=== PATIENT | female | born 1990 | race Caucasian/White ===

== ENCOUNTER → 2018-02-12 | Outpatient (CLI) | payer OTHER ==
[~2018-02-12] MED LIST: AMOX250 PO; CODACE30 PO; HYDR1TAB94 PO; MUPIROCIN15 GM TOP; Naprosyn500 MG PO; Silvadene20 GM TOP
[2018-02-12 15:03] LABS: BASOPHILS ABSOLUTE AUTO 0.06 K/mm3 (0.00-0.23); BASOPHILS PERCENT AUTO 1 % (0-2); EOSINOPHILS ABSOLUTE AUTO 0.05 K/mm3 (0.00-0.68); EOSINOPHILS PERCENT AUTO 1 % (0-6); Hematocrit 39.5 % (33.0-51.0); Hemoglobin 13.3 g/dL (11.5-16.0); IMMATURE GRAN ABSOLUTE AUTO 0.01 K/mm3 (0.00-0.10); IMMATURE GRAN PERCENT AUTO 0 % (0-1); LYMPHOCYTES ABSOLUTE AUTO 2.39 K/mm3 (0.84-5.20); LYMPHOCYTES PERCENT AUTO 33 % (21-46); MONOCYTES ABSOLUTE AUTO 0.47 K/mm3 (0.16-1.47); MONOCYTES PERCENT AUTO 7 % (4-13); Mean Corpuscular HGB 30.2 pg (26.0-34.0); Mean Corpuscular HGB Conc 33.7 g/dL (31.5-36.5); Mean Corpuscular Volume 90 fL (80-100); Mean Platelet Volume 9.7 fL (9.1-12.4); NEUTROPHILS ABSOLUTE AUTO 4.18 K/mm3 (1.96-9.15); NEUTROPHILS PERCENT AUTO 58 % (41-73); Platelet Count 296 K/mm3 (150-400); RDW Coefficient Variation 13.3 % (11.7-14.2); RDW Standard Deviation 44.2 fL (35.1-46.3); Red Blood Cell Count 4.41 M/mm3 (3.80-5.20); White Blood Cell Count 7.16 K/mm3 (4.00-11.30)
== END | disposition home or self-care (01) ==
LOC: LAB SHORT 15:00 → LAB EV 15:00
PROVIDERS: Physician Assistant
DX: R07.89 Other chest pain (principal)
CPT/HCPCS: 85025

== ENCOUNTER → 2021-09-09 | Outpatient (CLI) | payer OTHER | END | disposition home or self-care (01) | LOC: LAB 16:51 → LAB SHORT 16:51 | DX: N32.81 Overactive bladder (principal) | CPT/HCPCS: 87109 ==

== ENCOUNTER 2024-08-22 19:12 | Inpatient (IN) | payer OTHER ==
[~2024-08-22] VITALS: Ht 162.6 cm; Wt 97.3 kg
[2024-08-22] MEDS ORDERED: Methylergonovine Maleate 0.2MG / ML 1ML Amp IM PRN (19:25)
[2024-08-22] MEDS ORDERED: Tranexamic Acid 100 ML IV SCH (19:25)
[2024-08-22] MEDS ORDERED: ePHEDrine Sulfate 50 MG/ML 1ML Injection XX PRN (19:25)
[2024-08-22] MEDS ORDERED: OXYTOCIN/RINGER'S LACTATE 500 ML IV PRN (19:25)
[2024-08-22] MEDS ORDERED: Ondansetron HCl 2 MG / ML 2ML Vial IV PRN (19:25)
[2024-08-22] MEDS ORDERED: Carboprost Tromethamine 250 MCG/ML 1ML Amp IM PRN (19:25)
[2024-08-22] MEDS ORDERED: FentaNYL 2mcg/ml-Bup 0.1% Epd 250 ML EPI PRN (19:25)
[2024-08-22] MEDS ORDERED: Oxytocin 10 Unit / ML Vial IM PRN (19:25)
[2024-08-22] MEDS ORDERED: FentaNYL Citrate 50 MCG/ML 2 ML Injection IV PRN (19:30)
[2024-08-22 20:04] LABS: BASOPHILS ABSOLUTE AUTO 0.06 K/mm3 (0.00-0.23); BASOPHILS PERCENT AUTO 1 % (0-2); EOSINOPHILS ABSOLUTE AUTO 0.18 K/mm3 (0.00-0.68); EOSINOPHILS PERCENT AUTO 2 % (0-6); Hematocrit 36.3 % (33.0-51.0); Hemoglobin 12.0 g/dL (11.5-16.0); IMMATURE GRAN ABSOLUTE AUTO 0.06 K/mm3 (0.00-0.10); IMMATURE GRAN PERCENT AUTO 1 % (0-1); LYMPHOCYTES ABSOLUTE AUTO 2.42 K/mm3 (0.84-5.20); LYMPHOCYTES PERCENT AUTO 23 % (21-46); MONOCYTES ABSOLUTE AUTO 0.83 K/mm3 (0.16-1.47); MONOCYTES PERCENT AUTO 8 % (4-13); Mean Corpuscular HGB Conc 33.1 g/dL (31.5-36.5); Mean Corpuscular Volume 87 fL (80-100); NEUTROPHILS ABSOLUTE AUTO 7.20 K/mm3 (1.96-9.15); NEUTROPHILS PERCENT AUTO 67 % (41-73); NRBC ABSOLUTE 0.00 K/mm3 (0.00-0.02); NRBC Auto 0.0 /100 WBC (0.0-0.2); Platelet Count 180 K/mm3 (150-400); RDW Coefficient Variation 15.1 % (11.7-14.2); RDW Standard Deviation 47.3 fL (35.1-46.3)
[2024-08-22 20:23] VITALS: BP 125/76
[2024-08-22 21:51] VITALS: BP 120/63
[2024-08-22] MEDS ORDERED: OXYTOCIN/RINGER'S LACTATE 500 ML IV SCH (22:55)
[2024-08-23] VITALS (53 sets, daily range): BP systolic 115–167; BP diastolic 59–105
[2024-08-23] MEDS ORDERED: OXYTOCIN/RINGER'S LACTATE 500 ML IV SCH (16:15)
[2024-08-23] MEDS ORDERED: FentaNYL Citrate 50 MCG/ML 2 ML Injection ONE (19:19)
[2024-08-24] VITALS (52 sets, daily range): BP systolic 104–179; BP diastolic 49–93
[2024-08-24] MEDS ORDERED: DiphenhydrAMINE HCl 50 MG/ML 1ML Vial IV ONE (10:05)
[2024-08-24] MEDS ORDERED: DiphenhydrAMINE HCl 50 MG/ML 1ML Vial ONE (10:21)
[2024-08-24] MEDS ORDERED: CeFAZolin Sodium 2,000 MG in NS 100 ML IV SCH (12:20)
[2024-08-24 12:52] LABS: BASOPHILS ABSOLUTE AUTO 0.04 K/mm3 (0.00-0.23); BASOPHILS PERCENT AUTO 0 % (0-2); EOSINOPHILS ABSOLUTE AUTO 0.02 K/mm3 (0.00-0.68); EOSINOPHILS PERCENT AUTO 0 % (0-6); Hematocrit 35.4 % (33.0-51.0); Hemoglobin 11.5 g/dL (11.5-16.0); IMMATURE GRAN ABSOLUTE AUTO 0.10 K/mm3 (0.00-0.10); IMMATURE GRAN PERCENT AUTO 1 % (0-1); LYMPHOCYTES ABSOLUTE AUTO 1.13 K/mm3 (0.84-5.20); LYMPHOCYTES PERCENT AUTO 7 % (21-46); MONOCYTES ABSOLUTE AUTO 0.99 K/mm3 (0.16-1.47); MONOCYTES PERCENT AUTO 6 % (4-13); Mean Corpuscular HGB Conc 32.5 g/dL (31.5-36.5); Mean Corpuscular Volume 89 fL (80-100); NEUTROPHILS ABSOLUTE AUTO 15.07 K/mm3 (1.96-9.15); NEUTROPHILS PERCENT AUTO 87 % (41-73); NRBC ABSOLUTE 0.00 K/mm3 (0.00-0.02); NRBC Auto 0.0 /100 WBC (0.0-0.2); Platelet Count 141 K/mm3 (150-400); RDW Coefficient Variation 15.4 % (11.7-14.2); RDW Standard Deviation 48.8 fL (35.1-46.3)
[2024-08-24] MEDS ORDERED: Oxytocin 10 Unit / ML Vial ONE (13:15)
[2024-08-24] MEDS ORDERED: Ondansetron HCl 2 MG / ML 2ML Vial ONE (13:16)
--- NOTE | 2024-08-24 13:56 | NUR ---
08/24/24 Denisse4 Denice Saini BABY GIRL @ [id number]
[2024-08-24] MEDS ORDERED: Glycopyrrolate 0.2 MG/ML 5ML VIAL ONE (14:11)
[2024-08-24] MEDS ORDERED: Phenylephrine HCl 100 MCG/ML-NS 10MLSYR (1MG/10ML) ONE ×2 (14:11→14:28)
[2024-08-24] MEDS ORDERED: Dexamethasone Sod Phos 10 MG/ML 1ML VIAL ONE (14:23)
[2024-08-24] MEDS ORDERED: Ondansetron HCl 2 MG / ML 2ML Vial IV PRN (15:00)
[2024-08-24] MEDS ORDERED: Carboprost Tromethamine 250 MCG/ML 1ML Amp IM PRN (15:05)
[2024-08-24] MEDS ORDERED: Magnesium Hydroxide Conc 10 ML UDC PO PRN (15:05)
[2024-08-24] MEDS ORDERED: Rho(D) Immune Globulin 300 MCG / SYR IM ONE (15:05)
[2024-08-24] MEDS ORDERED: Methylergonovine Maleate 0.2MG / ML 1ML Amp IM PRN (15:05)
[2024-08-24] MEDS ORDERED: OXYTOCIN/RINGER'S LACTATE 500 ML IV SCH (15:10)
[2024-08-24] MEDS ORDERED: Benzocaine Topical Anesthetic Spray 60GM TOP PRN (15:10)
[2024-08-24] MEDS ORDERED: Witch Hazel/Glycerin PADS TOP PRN (15:15)
[2024-08-24] MEDS ORDERED: HYDROmorphone HCl/Pf 1MG SYR IV PRN (15:15)
[2024-08-24] MEDS ORDERED: Ketorolac Tromethamine 30mg Vial IV SCH (16:00)
[2024-08-24] MEDS ORDERED: Labetalol HCL 5 MG/ML 4ML Injection (Single Dose) ONE (16:06)
[2024-08-24] MEDS ORDERED: Magnesium Sul 4 GM/Water100 ML 100 ML IV ONE ×2 (16:07→16:30)
[2024-08-24 17:11] LABS: BASOPHILS ABSOLUTE AUTO 0.05 K/mm3 (0.00-0.23); BASOPHILS PERCENT AUTO 0 % (0-2); EOSINOPHILS ABSOLUTE AUTO 0.02 K/mm3 (0.00-0.68); EOSINOPHILS PERCENT AUTO 0 % (0-6); Hematocrit 33.6 % (33.0-51.0); Hemoglobin 10.9 g/dL (11.5-16.0); IMMATURE GRAN ABSOLUTE AUTO 0.11 K/mm3 (0.00-0.10); IMMATURE GRAN PERCENT AUTO 1 % (0-1); LYMPHOCYTES ABSOLUTE AUTO 1.14 K/mm3 (0.84-5.20); LYMPHOCYTES PERCENT AUTO 6 % (21-46); MONOCYTES ABSOLUTE AUTO 0.43 K/mm3 (0.16-1.47); MONOCYTES PERCENT AUTO 2 % (4-13); Mean Corpuscular HGB Conc 32.4 g/dL (31.5-36.5); Mean Corpuscular Volume 88 fL (80-100); NEUTROPHILS ABSOLUTE AUTO 17.79 K/mm3 (1.96-9.15); NEUTROPHILS PERCENT AUTO 91 % (41-73); NRBC ABSOLUTE 0.00 K/mm3 (0.00-0.02); NRBC Auto 0.0 /100 WBC (0.0-0.2); Platelet Count 151 K/mm3 (150-400); RDW Coefficient Variation 15.3 % (11.7-14.2); RDW Standard Deviation 48.7 fL (35.1-46.3)
[2024-08-24 17:32] LABS: Alanine Aminotransfer (ALT/SGP 13.0 U/L (12-78); Albumin, Blood 1.6 g/dL (3.4-5.0); Albumin/Globulin Ratio 0.5 (0.8-1.8); Anion Gap 9.0 mmol/L (3-11); Aspartate Aminotrans (AST/SGOT 25.0 U/L (12-37); Bilirubin, Total 0.3 mg/dL (0.1-1.0); Blood Urea Nitrogen 12.0 mg/dL (8-24); CO2, Blood 20.0 mmol/L (21-32); Calcium, Blood 7.8 mg/dL (8.5-10.1); Chloride, Blood 106.0 mmol/L (98-108); Creatinine, Blood 0.93 mg/dL (0.40-1.00); Globulin, Blood 3.4 g/dL (2.2-4.0); Glucose, Blood 78.0 mg/dL (70-99); Lactate Dehydrogenase (Ld),Bld 296.0 U/L (100-240); Potassium, Blood 4.2 mmol/L (3.5-5.5); Sodium, Blood 131.0 mmol/L (136-145); Total Protein, Blood 5.0 g/dL (6.4-8.2)
[2024-08-24 17:53] LABS: Fibrinogen 511.0 mg/dL (170-430); Prothrombin Time Results 10.3 Sec (9.7-11.5)
[2024-08-24 19:12] LABS: Creatinine, Urine Random 142.0 mg/dL (27.00-270.00); Protein, Urine Random 68.1 mg/dL (0.0-11.9); Protein/Creat Ratio, Ur Random 0.5
[2024-08-25] VITALS (19 sets, daily range): BP systolic 100–143; BP diastolic 51–80
[2024-08-25 05:43] LABS: BASOPHILS ABSOLUTE AUTO 0.02 K/mm3 (0.00-0.23); BASOPHILS PERCENT AUTO 0 % (0-2); EOSINOPHILS ABSOLUTE AUTO 0.00 K/mm3 (0.00-0.68); EOSINOPHILS PERCENT AUTO 0 % (0-6); Hematocrit 28.0 % (33.0-51.0); Hemoglobin 9.4 g/dL (11.5-16.0); IMMATURE GRAN ABSOLUTE AUTO 0.14 K/mm3 (0.00-0.10); IMMATURE GRAN PERCENT AUTO 1 % (0-1); LYMPHOCYTES ABSOLUTE AUTO 1.43 K/mm3 (0.84-5.20); LYMPHOCYTES PERCENT AUTO 8 % (21-46); MONOCYTES ABSOLUTE AUTO 0.68 K/mm3 (0.16-1.47); MONOCYTES PERCENT AUTO 4 % (4-13); Mean Corpuscular HGB Conc 33.6 g/dL (31.5-36.5); Mean Corpuscular Volume 87 fL (80-100); NEUTROPHILS ABSOLUTE AUTO 16.08 K/mm3 (1.96-9.15); NEUTROPHILS PERCENT AUTO 88 % (41-73); NRBC ABSOLUTE 0.00 K/mm3 (0.00-0.02); NRBC Auto 0.0 /100 WBC (0.0-0.2); Platelet Count 147 K/mm3 (150-400); RDW Coefficient Variation 15.3 % (11.7-14.2); RDW Standard Deviation 48.1 fL (35.1-46.3)
[2024-08-25] MEDS ORDERED: Labetalol HCL 5 MG/ML 4ML Injection (Single Dose) IV ONE (06:15)
[2024-08-25] MEDS ORDERED: Polyethylene Glycol 3350 17 gm PO SCH (09:00)
[2024-08-25] MEDS ORDERED: Prenatal Vit/FE Fumarate/FA 1 Tab PO SCH (09:00)
[2024-08-25] MEDS ORDERED: Ketorolac Tromethamine 30mg Vial IV ONE (10:25)
[2024-08-25] MEDS ORDERED: Sod Ferric Gluc Complx/Sucrose 125 MG in NS 100 ML IV SCH (14:41)
[2024-08-26 05:04] VITALS: BP 138/90
[2024-08-26 07:37] VITALS: BP 130/75
[2024-08-26 11:56] VITALS: BP 132/79
[2024-08-26 19:39] VITALS: BP 138/86
[2024-08-26 23:15] VITALS: BP 137/81
[2024-08-27 05:08] VITALS: BP 145/72
[2024-08-27 07:12] VITALS: BP 145/91
[2024-08-27 12:05] VITALS: BP 130/79
[2024-08-27] MEDS ORDERED: Magnesium Hydroxide Conc 10 ML UDC PO ONE (13:00)
[2024-08-27 18:40] VITALS: BP 130/75
== END 2024-08-27 18:50 | disposition home or self-care (01) | DRG 787 ==
LOC: OBS 19:12 → BC 19:17 → OBS 19:34 → BC 19:36
PROVIDERS: Obstetrics & Gynecology; ADMIT Advanced Practice Midwife
PROC: 3E033VJ Introduction of Other Hormone into Peripheral Vein, Percutaneous Approach (ICD-10-PCS; 2024-08-22)
PROC: 0U7C7DJ Dilation of Cervix with Intraluminal Device, Temporary, Via Natural or Artificial Opening (ICD-10-PCS; 2024-08-22)
PROC: 4A1HXCZ Monitoring of Products of Conception, Cardiac Rate, External Approach (ICD-10-PCS; 2024-08-22)
PROC: 10907ZC Drainage of Amniotic Fluid, Therapeutic from Products of Conception, Via Natural or Artificial Opening (ICD-10-PCS; 2024-08-23)
PROC: 10D00Z1 Extraction of Products of Conception, Low, Open Approach (ICD-10-PCS; principal; 2024-08-24 14:30)
DX: O48.0 Post-term pregnancy (principal); D62 Acute posthemorrhagic anemia; Z3A.41 41 weeks gestation of pregnancy; Z37.0 Single live birth; O99.344 Other mental disorders complicating childbirth; F41.9 Anxiety disorder, unspecified; O90.81 Anemia of the puerperium; O14.15 Severe pre-eclampsia, complicating the puerperium; O62.8 Other abnormalities of forces of labor; T65.891A Toxic effect of other specified substances, accidental (unintentional), initial encounter; L23.1 Allergic contact dermatitis due to adhesives; O99.893 Other specified diseases and conditions complicating puerperium; K59.00 Constipation, unspecified; O99.63 Diseases of the digestive system complicating the puerperium; O33.8 Maternal care for disproportion of other origin
CPT/HCPCS: 36415; 51702; 80053; 82570; 83615; 84156; 85025; 85384; 85610; 85730; 86850; 86900; 86901; 86923; A9270; J0456; J0690; J1100; J1200; J1885; J2371; J2405; J2590; J2916; J3010; J3475; J7050; J7120; Q0177